=== PATIENT | male | born 1960 | race Native Hawaiian/Other Pacific Islander ===

== ENCOUNTER 2017-05-29 07:49 | Outpatient (CLI) | payer BC ==
[~2017-05-29 07:49] MED LIST: SYNTHROID175 MCG PO
== END 2017-05-29 21:44 | disposition home or self-care (01) ==
LOC: LABW 07:49
DX: C73 Malignant neoplasm of thyroid gland (principal)
CPT/HCPCS: 36415; 84439; 84443; 84480

== ENCOUNTER 2017-07-24 21:12 | Emergency (ER) | payer BC ==
[~2017-07-24] VITALS: Ht 180.3 cm; Wt 104.3 kg
[2017-07-24 21:50] LABS: PLATELET COUNT 241 K/uL (142-355)
[2017-07-24 21:56] LABS: POTASSIUM 3.8 mmol/L (3.6-5.2)
[2017-07-24 23:46] VITALS: BP 106/55; TEMP 98.2
== END 2017-07-24 23:48 | disposition home or self-care (01) ==
LOC: ED 21:12
DX: R07.89 Other chest pain (principal)
CPT/HCPCS: 36415; 80053; 82550; 84484; 85027; 85610; 85730; 93005; 99283

== ENCOUNTER 2017-08-02 08:16 | Outpatient (CLI) | payer BC | END 2017-08-02 18:12 | disposition home or self-care (01) | LOC: US 08:16 | DX: R79.82 Elevated C-reactive protein (CRP) (principal); R07.89 Other chest pain; R53.83 Other fatigue ==

== ENCOUNTER 2019-01-08 18:30 | Emergency (ER) | payer BC ==
[~2019-01-08] VITALS: Ht 180.3 cm; Wt 104.3 kg
[2019-01-08 19:26] LABS: PLATELET COUNT 256 K/uL (142-355)
[2019-01-08 20:04] LABS: POTASSIUM 4.2 mmol/L (3.6-5.2)
[2019-01-08 20:25] VITALS: BP 175/85; TEMP 98.2
== END 2019-01-08 20:25 | disposition home or self-care (01) ==
LOC: ED 18:30
PROVIDERS: Family Medicine
DX: M62.838 Other muscle spasm (principal)
CPT/HCPCS: 36415; 80053; 85027; 85379; 96372; 99283; J1885

== ENCOUNTER 2021-06-05 12:04 | Outpatient (CLI) | payer BC | END 2021-06-05 21:43 | disposition home or self-care (01) | LOC: LABW 12:04 | PROVIDERS: ATTEND Family Medicine | DX: J02.9 Acute pharyngitis, unspecified (principal) | CPT/HCPCS: 87651 ==